=== PATIENT | male | born 1995 | race Caucasian/White ===

== ENCOUNTER 2017-01-02 02:48 | Emergency (ER) | payer BC ==
[~2017-01-02] VITALS: Ht 175.3 cm; Wt 115.8 kg
[2017-01-02 03:00] VITALS: TEMP 36.9; Ht 175.3 cm; Wt 115.8 kg
[2017-01-02 03:05] VITALS: O2SAT 97
[2017-01-02 03:46] LABS: BUN/CREATININE RATIO 11.9 (10-20); CALCIUM 8.4 mg/dl (8.5-10.1); CREATININE 1.1 mg/dl (0.60-1.40); POTASSIUM 3.5 mmol/L (3.5-5.1)
[2017-01-02 07:01] VITALS: BP 109/63; PULSE 75; O2SAT 96
--- NOTE | 2017-01-02 07:25 | EMERGENCY ROOM VISIT NOTE ---
History First contact with patient: 02:56 Chief Complaint: ALCOHOL OVERDOSE Stated Complaint: ALCOHOL OVERDOSE Nursing Triage Summary: Patient arrives to ED via BLS transport after being found downtown stumbling out of an Uber. Patient reports that he drank unknown amount of alcohol at [facility]. Patient denies drug use, denies injury or fall. History of Present Illness The patient is a 21 year old male who presents to the Emergency Department via EMS for evaluation of alcohol overdose. The patient was drinking at a bar locally. He stumbled out of his ride home and the sales driver called EMS. The patient was brought for further evaluation. He denies striking his head or any loss of consciousness. He reports no other drug use. He takes no daily medications. He denies any pain rating his discomfort a 0/10. History of present illness is limited secondary to patient's current state of intoxication. Review of Systems Review of systems is limited secondary to the patient's current state of intoxication. Social History Smoking Status: Current Some Day Smoker Alcohol Use: none Drug Use: none Marital Status: single Housing Status: lives with roommate Occupation Status: [employer] student Current/Historical Medications No Active Prescriptions or Reported Meds Allergies Coded Allergies: No Known Allergies (Unverified , 12/28/15) Physical Exam Vital Signs Date Time Temp Pulse Resp B/P Pulse Ox O2 Delivery O2 Flow Rate FiO2 01/02/17 07:01 75 18 109/63 96 Room Air 01/02/17 06:20 75 18 107/55 96 Room Air 01/02/17 06:10 86 01/02/17 05:43 78 16 107/62 97 Nasal Cannula 2.0 01/02/17 05:04 76 17 124/54 94 Nasal Cannula 2.0 01/02/17 03:31 70 17 128/69 99 Nasal Cannula 2.0 01/02/17 03:05 97 Room Air 01/02/17 03:00 36.9 96 18 156/108 97 Room Air 01/02/17 02:56 91 Pain Rating (0-10): 0 Physical Exam VITALS - Vitals are noted on the nurse's note and reviewed by myself. Vital signs stable. GENERAL -21-year-old male, in no acute distress, nondiaphoretic, well-developed well-nourished. The patient is visibly intoxicated. SKIN - The skin was without obvious lacerations, abrasions, or rashes. There is no tenting of the skin. Capillary reflex less than 2 seconds. HEENT - Normocephalic, atraumatic. PERRLA. EOMI. Conjunctiva with mild injection without icterus. Tympanic membranes without erythema or effusion bilaterally no hemotympanum. External auditory canals are clear. Nares patent bilaterally. No epistaxis. Oropharynx without erythema or exudate. Uvula midline. Oral mucosal moist. No lymphadenopathy. Neck is supple without cervical spine tenderness. HEART - Regular rate and rhythm without murmurs gallops or rubs. Peripheral pulses 2+. LUNGS - Clear to auscultation bilaterally without wheezes, rales or rhonchi. ABDOMEN - Positive bowel sounds x 4. Normal tympanic percussion. Soft, nontender, without masses or organomegaly. MUSCULOSKELETAL - Gross motor function of the upper and lower extremities intact. NEUROLOGIC - The patient is visibly intoxicated. Medical Decision & Procedures Laboratory Results 01/02/17 03:16 Test 01/02/17 03:16 Anion Gap 9.0 mmol/L (3-11) Est Creatinine Clear Calc Drug Dose 132.2 ml/min Estimated GFR () 109.9 Estimated GFR (Non- 94.8 BUN/Creatinine Ratio 11.9 (10-20) Calcium Level 8.4 mg/dl (8.5-10.1) Ethyl Alcohol mg/dL 304.0 mg/dl (0-3) Procedure Patient was placed on the radiographer cardiac catheterization and monitored throughout the entire extent of their stay. In addition, the patient's pulse oximetry was monitored throughout the entire stay. Any abnormalities or aberrancies were addressed appropriately. ED Course Patient was seen and evaluated by myself. Aspiration precautions were instituted and the patient was placed in the prone position. The patient was placed on the radiographer cardiac catheterization and pulse oximetry was monitored throughout the entire stay in the emergency department. Labs were collected. Patient's medical alcohol was found to be elevated at 304.0 mg/dL. Patient was monitored in the emergency department for greater than 4.5 hours. The patient eventually was awoken and educated on today's visit. They were encouraged to refrain from heavy drinking. All labs and diagnostics were reviewed. Patient was discharged home in good condition. Medical Decision Given the patient's presentation and exam findings, I did elect to perform the above-mentioned workup. The patient presents today visibly intoxicated. The patient was monitored constantly throughout entire stay in the emergency setting. Medical alcohol level was elevated significantly at 304.0 mg/dL. After a lengthy stay in the Emergency Department the patient was deemed appropriate for discharge. Patient was discharged home in good condition. In the evaluation and treatment of this patient, the following differential diagnoses were considered: Hypoglycemia, Barbiturate Toxicity, Benzodiazepine Toxicity, Depression and Suicidality, Diabetic Ketoacidosis, Encephalitis, Ethylene Glycol Toxicity, Meningitis, Metabolic Acidosis, Opioid Toxicity, CVA, TIA, Intracranial Abnormality, Acute Psychosis, Amongst Others. Impression Primary Impression: Alcohol overdose Departure Information Dispostion Home / Self-Care Condition GOOD Prescriptions No Active Prescriptions or Reported Meds Referrals No Doctor, Assigned (PCP) Patient Instructions My [facility] Additional Instructions You were seen in the emergency department this morning for an alcohol overdose. Do not drive or operate heavy machinery for the remainder of the day. For pain control, you can use the following [id number] medicines (if >12 yo): - Regular strength (325mg/tab) Tylenol (acetaminophen) 2 tabs every 4-6 hours as needed. Do not exceed 12 tablets in a 24 hour period. Avoid taking more than 4 grams (4000 mg) of Tylenol per day. This includes any other sources of acetaminophen you may take on a regular basis. - Regular strength (200 mg/tab) Advil (ibuprofen) 1-2 tabs every 4-6 hours as needed. Do not exceed a dose of 3200 mg per day. Follow-up with [facility] as needed. Problem Qualifiers Primary Impression: Alcohol overdose Encounter type: initial encounter Injury intent: accidental or unintentional Qualified Codes: T51.91XA - Toxic effect of unspecified alcohol , accidental (unintentional), initial encounter
== END 2017-01-02 07:56 | disposition home or self-care (01) ==
LOC: EDBD 02:48 → C.EDB 02:49
DX: T51.0X1A Toxic effect of ethanol, accidental (unintentional), initial encounter (principal); X58.XXXA Exposure to other specified factors, initial encounter; F17.210 Nicotine dependence, cigarettes, uncomplicated